=== PATIENT | male | born 1990 | race Caucasian/White ===

== ENCOUNTER 2023-02-16 06:49 | Emergency (ER) | payer OTHER, SELFPAY ==
--- NOTE | ~2023-02-16 | CT_ITS ---
EXAMINATION: CT ABDOMEN AND PELVIS WITHOUT CONTRAST CLINICAL INFORMATION: Right flank pain COMPARISON: None available. TECHNIQUE: Multidetector volumetric imaging was performed from the superior aspect of the liver through the pubic symphysis. Sagittal and coronal reformatted images were obtained on the technologist's workstation. This CT examination was performed using dose optimization techniques as appropriate, variously including the following: *Automated exposure control *Adjustment of mA and/or kV according to patient size (this includes techniques or standardized protocols for targeted exams where dose is matched to indication/reason for exam; i.e. extremities or head) *Use of iterative reconstruction technique DLP: 616 2 mGy-cm FINDINGS: LUNG BASES: Linear opacities in the anterior aspect of the right middle lobe and lingula, could reflect atelectasis or scarring. No pericardial or pleural effusion. LIVER, GALLBLADDER, AND BILIARY TREE: Right lobe measures 20 cm. Attenuation is within normal limits. No focal hepatic lesion or biliary ductal dilatation is present. The gallbladder is unremarkable with no evidence of radiopaque gallstones, gallbladder wall thickening, or obvious pericholecystic inflammatory changes. PANCREAS: Unremarkable. No acute inflammatory changes. SPLEEN: Unremarkable. ADRENAL GLANDS: Unremarkable. KIDNEYS AND URETERS: There is a 2 mm calculus in the proximal right ureter. There is mild hydroureteronephrosis proximal to the calculus. The more distal ureter is nondistended. There is a 2 mm nonobstructing calculus in the midpole right renal calyx. No left renal calculi. No suspicious renal lesions. No left-sided hydroureteronephrosis. BLADDER: Nondistended, limiting evaluation. No obvious calculus is evident. GASTROINTESTINAL TRACT: Stomach is partially distended with intraluminal fluid. There is relative dilatation of the right colon to the level of the mid transverse colon. Distal to this, there is a nondistended segment of the transverse colon. There is a distention of the splenic flexure. The large colon distal to this is not dilated, with small-moderate volume stool. Findings are nonspecific. This could represent asymmetric distribution of large bowel gas. No colonic wall thickening or pericolonic inflammatory changes are seen. No dilated small bowel loops. Normal appendix. No free fluid. No free air. ABDOMINAL WALL: No significant hernia is appreciated. LYMPH NODES: No adenopathy is identified in the abdomen or pelvis. VASCULAR: Unremarkable. PELVIC VISCERA: Unremarkable. OSSEOUS STRUCTURES: No acute osseous abnormality seen. CT/CT abdomen pelvis wo IV con IMPRESSION: 1. There is a 2 mm calculus in the proximal right ureter, with mild hydroureteronephrosis proximal to the calculus. Right renal 2 mm nonobstructing calculus. 2. Asymmetric distention of the large colon, with asymmetric distention of the ascending colon and proximal transverse colon, and splenic flexure. Findings are of uncertain etiology. This could represent asymmetric bowel gas distribution. Clinically correlate and follow-up. Follow-up imaging for further evaluation and exclude large colon pathology, as clinically indicated. 3. Hepatomegaly. No focal liver lesions. 4. Additional findings and details as above. Fleischner guidelines were followed.
[2023-02-16 07:01] VITALS: BP 154/101; PULSE 98; RESP 18; TEMP 37; O2SAT 99; BMI 28.7
[2023-02-16 07:14] VITALS: BP 146/94; PULSE 96; RESP 18; TEMP 36.6; O2SAT 100
[2023-02-16 07:18] LABS: MANUAL DIFF FLAG NO
[2023-02-16 07:19] LABS: Basophils Percent Auto 0.2 % (0-2); Eosinophils Percent Auto 0.2 % (0-4); Hematocrit 45.8 % (42.0-52.0); Hemoglobin 16.3 g/dl (14.0-18.0); Imm Gran Abs Auto 0.05 X10*3/uL (0.00-0.03); Imm Gran Pct Auto 0.4 % (0.0-0.4); Lymphocytes Percent Auto 23.2 % (20-40); Mean Corpuscular HGB Conc 35.6 g/dl (31.0-36.0); Mean Corpuscular Hemoglobin 31.5 pg (27.0-33.0); Mean Corpuscular Volume 88.6 fL (80.0-98.0); Mean Platelet Volume 9.2 fL (9.4-12.4); Monocytes Absolute Auto 0.7 X10*3/uL (0.1-1.2); Monocytes Percent Auto 5.5 % (2-11); Neutrophils Absolute Auto 9.1 x10*3/uL (2.0-8.3); Neutrophils Percent Auto 70.5 % (45-73); Platelet Count 344 X10*3/uL (160-400); Red Blood Count 5.17 X10*6/uL (4.60-5.80); Red Cell Distribution Width 12.8 % (11.0-16.0); White Blood Count 12.9 X10*3/uL (4.8-10.8)
--- NOTE | 2023-02-16 07:23 | ED.GENADULT ---
[facility] - General Adult General Chief complaint: Abdominal Pain Stated complaint: back pain Time Seen by Provider: 02/16/23 07:05 Source: patient and RN notes reviewed Mode of arrival: ambulatory Limitations: no limitations History of Present Illness HPI narrative: This is a 32-year-old male, with a past medical history of back pain, presenting to the emergency department with complaints of right-sided flank pain since 2:00 p.m. yesterday. Patient reports that he was relaxing at home when he suddenly developed right-sided back pain that radiated into his right flank. He endorses 3 episodes of non-bloody vomiting yesterday. He denies any recent falls, trauma, or heavy lifting. He denies any fevers, endorses chills. No chest pain, shortness of breath, nausea, urinary frequency, urgency, hematuria. Denies history of kidney stones he states that he last took ibuprofen 800 mg 1 hour prior to his arrival which provided him without any relief. No urinary or bowel incontinence. No saddle anesthesia. No other complaints or concerns at this time MD complaint: R flank pain Onset (ago): day(s) Relieving factors: none Exacerbating factors: none Associated symptoms: denies other symptoms Treatments prior to arrival: none Related Data Previous Rx's Medication Instructions Recorded acetaminophen 325 mg tablet 650 mg PO Q6H PRN pain #45 tabs 02/16/23 (Tylenol) cyclobenzaprine 10 mg tablet 10 mg PO BID PRN muscle spasm #14 02/16/23 tabs ibuprofen 600 mg tablet 600 mg PO Q6H PRN pain #45 tabs 02/16/23 oxycodone 5 mg capsule 5 mg PO Q6H PRN pain #10 caps 02/16/23 tamsulosin 0.4 mg capsule (Flomax) 0.4 mg PO DAILY #7 caps 02/16/23 Allergies Allergy/AdvReac Type Severity Reaction Status Date / Time No Known Allergies Allergy Mild NKA Unverified 03/17/20 16:32 Review of Systems Review of Systems: Yes all other systems are reviewed and are negative Constitutional: Constitutional: Reports as per [facility] Social History Social History Alcohol intake: current Alcohol intake frequency: holidays/special occasions only Smoked in Last 30 Days: No Use of substances other than those prescribed or required for medical reasons: No Advance Directives: No Advance Directives Information Provided: No Physical Exam ED Vital Signs: Vital Signs - 24 hr 02/16/23 08:24 02/16/23 10:52 02/16/23 12:05 Temperature 98.8 F 98.8 F Pulse Rate 96 91 83 Respiratory Rate 18 16 18 Blood Pressure 129/88 152/102 H 131/85 Pulse Oximetry 97 98 98 Oxygen Delivery Method Room Air Room Air Room Air BMI result Body Mass Index 28.7 Const Other: In moderate distress secondary to pain. General: cooperative and comfortable Orientation/consciousness: patient oriented x3 Limitations: no limitations HENMT Head: Yes normal to inspection, Yes normocephalic and Yes atraumatic Ears: hearing grossly normal bilaterally General nose exam: Normal external nose present Face and sinus: Yes normal facial exam Mouth: Normal oral and palatal mucosa present, oropharynx normal and moist mucous membranes Throat: Yes posterior oropharynx normal Eyes General: appearance normal, both eyes and all related structures Eyelids: Yes eyelids normal Conjunctivae: conjunctivae normal Sclerae: sclerae normal Pupils: Equal, round and reactive pupils present EOM: EOMs intact bilaterally Neck Neck: Yes normal visual inspection, Yes full ROM and Yes no lymphadenopathy Lymphatic: no lymphadenopathy noted Chest Chest palpation & inspection: normal inspection of the chest Resp Effort & Inspection: normal respiratory effort and able to speak in complete sentences Auscultation: clear to auscultation bilaterally, no crackles, no rales, no rhonchi and no wheezes Cardio Rate: regular rate Rhythm: regular rhythm Heart sounds: S1 normal heart sound present and S2 normal heart sound present GI Other: Abdomen is soft, nontender, nondistended, normoactive bowel sounds present in all 4 quadrants. Inspection: Yes normal to inspection Other: Mild CVA tenderness on palpation Back/Spine/Pelvis Other: No C-spine, T-spine, L-spine midline tenderness. Tenderness palpation in the right paraspinous muscles. Patient is ambulatory. Distal sensation circulation intact Cervical Spine: normal cervical lordosis Thoracic/Lumbar Spine: thoracic and lumbar spine normal to inspection Pelvis: no pain with anterior-posterior compression Skin General skin exam: no rashes or lesions noted Trauma: no lacerations or abrasions Wounds: no wounds Neuro General: patient oriented x3 and moves all extremities Cranial nerves: Yes Equal, round and reactive pupils present Extrem General: Yes normal to inspection Right upper extremity: normal to inspection Left upper extremity: normal to inspection Right lower extremity: normal to inspection Left lower extremity: normal to inspection Course Reevaluation(s) Reevaluation #1: Patient's pain has not improved despite getting morphine 4 mg IV. Patient found leaning forward, massaging back. Dilaudid 0.5 mg IV ordered. Time: 08:12 Reevaluation #2: Patient re-evaluated after receiving Dilaudid, appears much more comfortable, sitting upright. Reporting pain significantly improved. CT abdomen and pelvis pending. Time: 08:23 Reevaluation #3: CT abdomen revealing a 2 mm calculus in the proximal right ureter with mild hydroureternephrosis proximal to the calculus. Right renal 2 mm nonobstructing calculus. There is also asymmetric distention of the large colon, discussed case with Dr. Ghotra. Patient has been passing gas, last bowel movement was yesterday. Unlikely significant. Patient is still in pain. Will medicate with Dilaudid 1 mg IV Time: 10:24 Additional Reevaluation(s): 1146 - patient feeling better after receiving IV dilaudid. Patient reports that he still has intermittent pain, feeling as though it is like a muscle spasm. Patient does have tenderness palpation along the right lumbar musculature. Educated patient importance of alternating between ibuprofen and Tylenol. Given Flomax. Also given referral to Urology if he would like to follow-up. Strict return precautions. Patient understands and agrees with plan. Patient stable for discharge. Medications Administered Discontinued Medications Generic Name Dose Route Start Last Admin Trade Name Judy PRN Reason Stop Dose Admin Hydromorphone HCl 0.5 mg 02/16/23 08:06 02/16/23 08:14 Hydromorphone Hcl 0.5 Mg/0.5 Ml Syringe IVPUSH 02/16/23 08:07 0.5 mg ONCE ONE Administration Protocol Hydromorphone HCl 0.25 mg 02/16/23 09:37 02/16/23 09:43 Hydromorphone Hcl 0.5 Mg/0.5 Ml Syringe IVPUSH 02/16/23 09:38 0.25 mg ONCE ONE Administration Protocol Hydromorphone HCl 1 mg 02/16/23 10:23 08/19/23 10:54 Hydromorphone Hcl 1 Mg/Ml Syringe IVPUSH 02/16/23 10:24 1 mg ONCE ONE Administration Protocol Sodium Chloride 1,000 mls @ 999 mls/hr 02/16/23 07:23 02/16/23 09:28 Ns IV 02/16/23 08:23 Infused .Q1H1M ONE Infusion Morphine Sulfate 4 mg 02/16/23 07:21 02/16/23 07:45 Morphine Sulfate 4 Mg/Ml Cartridge IVPUSH 02/16/23 07:22 4 mg ONCE ONE Administration Protocol Medical Decision Making Medical Decision Making MDM Narrative: 32-year-old male presenting to the emergency department for evaluation of right-sided flank pain since yesterday. Patient admitting to 3 episodes of nonbloody vomit taking yesterday. On arrival, patient's blood pressure 154/101, mildly hypertensive likely due to pain. Patient appears uncomfortable. Presentation concerning for nephrolithiasis vs pyelonephritis vs back strain, given level of discomfort and taking ibuprofen 800 mg p.o. just prior to arrival, will medicate with morphine 4 mg IV and IV fluids. Unable to be medicated with ketorolac. On examination, patient does have mild tenderness palpation along the right lumbar musculature as well as right flank. Abdomen is soft, nontender, nondistended. Plan: Labs, UA, pain control, CT abdomen pelvis Differential Diagnosis Differential Diagnoses: The differential diagnosis associated with the presentation includes Nephrolithiasis, pyelonephritis, disc herniation, sciatica Lab Data [facility] Lab Attestation statement: I reviewed the patient's lab results. Mild leukocytosis at 12.9, stable H&H, urine with large blood, consistent with kidney stone finding, no evidence of infection. 02/16/23 07:11 02/16/23 07:11 Labs: Lab Results 02/16/23 02/16/23 02/16/23 Range/Units 07:11 07:11 08:27 WBC 12.9 H (4.8-10.8) X10*3/uL RBC 5.17 (4.60-5.80) X10*6/uL Hgb 16.3 (14.0-18.0) g/dl Hct 45.8 (42.0-52.0) % MCV 88.6 (80.0-98.0) fL MCH 31.5 (27.0-33.0) pg MCHC 35.6 (31.0-36.0) g/dl RDW 12.8 (11.0-16.0) % Plt Count 344 (160-400) X10*3/uL MPV 9.2 L (9.4-12.4) fL Immature Gran % (Auto) 0.4 (0.0-0.4) % Neut % (Auto) 70.5 (45-73) % Lymph % (Auto) 23.2 (20-40) % Terry % (Auto) 5.5 (2-11) % Eos % (Auto) 0.2 (0-4) % Baso % (Auto) 0.2 (0-2) % Lymph # (Auto) 3.0 (1.2-4.9) X10*3/uL Terry # (Auto) 0.7 (0.1-1.2) X10*3/uL Eos # (Auto) 0.0 (0.0-0.4) X10*3/uL Baso # (Auto) 0.0 (0.0-0.2) X10*3/uL Abs Immat Gran (auto) 0.05 H (0.00-0.03) X10*3/uL Absolute Neuts (auto) 9.1 H (2.0-8.3) x10*3/uL Absolute Nucleated RBC 0.000 (0.0-0.012) X10*3/uL Nucleated RBC % (auto) 0.0 (0.0-0.2) /100WBC Sodium 140 (135-145) mmol/L Potassium 3.8 (3.3-5.1) mmol/L Chloride 105 (96-108) mmol/L Carbon Dioxide 24 (22-29) mmol/L Anion Gap 15 (12-20) BUN 8 L (9-16) mg/dL Creatinine 0.94 (0.5-1.4) mg/dL Estim Creat Clear Calc 145.9 Estimated GFR > 60 Random Glucose 114 (60-115) mg/dL Calcium 9.4 (8.4-10.2) mg/dL Total Bilirubin 1.0 (0.0-1.0) mg/dL Direct Bilirubin 0.2 (0.0-0.5) mg/dL AST 20 (5-37) U/L ALT 18 (0-40) U/L Alkaline Phosphatase 70 (39-117) U/L Total Protein 7.1 (6.5-8.0) g/dL Albumin 4.2 (3.5-5.0) g/dL Lipase 17 (8-78) U/L Urine Color Yellow Urine Appearance Clear Urine pH 6.5 (5.0-9.0) Ur Specific [place] 1.015 (1.005-1.025) Urine Protein Trace (Neg-Trace) mg/dL Urine Glucose (UA) Negative (Negative) mg/dL Urine Ketones 15 (Negative) mg/dL Urine Blood Large (3+) H (Negative) Urine Nitrite Negative (Negative) Ur Leukocyte Esterase Negative (Negative) Urine RBC >20 H (0-2) /HPF Urine WBC 0-5 (0-5) /HPF Ur Squamous Epith Cells 0-2 (0-2) /HPF Urine Bacteria None Seen (None Seen) Hyaline Casts 0-2 (0-2) /LPF Radiology Impression Discussion of test interpretation with radiology: I have reviewed the radiologist's reading. Radiologist Impression: EXAMINATION: CT ABDOMEN AND PELVIS WITHOUT CONTRAST? CLINICAL INFORMATION: Right flank pain? COMPARISON: None available. TECHNIQUE: Multidetector volumetric imaging was performed from the superior aspect of the liver through the pubic symphysis. Sagittal and coronal reformatted images were obtained on the technologist's workstation.? This CT examination was performed using dose optimization techniques as appropriate, variously including the following: *Automated exposure control *Adjustment of mA and/or kV according to patient size (this includes techniques or standardized protocols for targeted exams where dose is matched to indication/reason for exam; i.e. extremities or head) *Use of iterative reconstruction technique DLP: 616 2 mGy-cm FINDINGS: LUNG BASES: Linear opacities in the anterior aspect of the right middle lobe and lingula, could reflect atelectasis or scarring. No pericardial or pleural effusion.? LIVER, GALLBLADDER, AND BILIARY TREE: Right lobe measures 20 cm. Attenuation is within normal limits. No focal hepatic lesion or biliary ductal dilatation is present. The gallbladder is unremarkable with no evidence of radiopaque gallstones, gallbladder wall thickening, or obvious pericholecystic inflammatory changes.? PANCREAS: Unremarkable. No acute inflammatory changes.? SPLEEN: Unremarkable.? ADRENAL GLANDS: Unremarkable.? KIDNEYS AND URETERS: There is a 2 mm calculus in the proximal right ureter. There is mild hydroureteronephrosis proximal to the calculus. The more distal ureter is nondistended. There is a 2 mm nonobstructing calculus in the midpole right renal calyx. No left renal calculi. No suspicious renal lesions. No left-sided hydroureteronephrosis.? BLADDER: Nondistended, limiting evaluation. No obvious calculus is evident.? GASTROINTESTINAL TRACT: Stomach is partially distended with intraluminal fluid. There is relative dilatation of the right colon to the level of the mid transverse colon. Distal to this, there is a nondistended segment of the transverse colon. There is a distention of the splenic flexure. The large colon distal to this is not dilated, with small-moderate volume stool. Findings are nonspecific. This could represent asymmetric distribution of large bowel gas. No colonic wall thickening or pericolonic inflammatory changes are seen. No dilated small bowel loops. Normal appendix. No free fluid. No free air.? ABDOMINAL WALL: No significant hernia is appreciated.? LYMPH NODES: No adenopathy is identified in the abdomen or pelvis. VASCULAR: Unremarkable. PELVIC VISCERA: Unremarkable.? OSSEOUS STRUCTURES: No acute osseous abnormality seen.? CT/CT abdomen pelvis wo IV con IMPRESSION: 1. There is a 2 mm calculus in the proximal right ureter, with mild hydroureteronephrosis proximal to the calculus. Right renal 2 mm nonobstructing calculus. ? 2. Asymmetric distention of the large colon, with asymmetric distention of the ascending colon and proximal transverse colon, and splenic flexure. Findings are of uncertain etiology. This could represent asymmetric bowel gas distribution. Clinically correlate and follow-up. Follow-up imaging for further evaluation and exclude large colon pathology, as clinically indicated. ? 3. Hepatomegaly. No focal liver lesions. ? 4. Additional findings and details as above. ? Fleischner guidelines were followed. Dictated By: Joshua Pinto MD Independent Historian Clinical information obtained from an independent historian. History obtained from or confirmed by: Spouse Prescription Management I considered prescription management with: Pain Medication Critical Care Time Critical Care Time Critical Care Time: Yes Total Critical Care Time: 35 Attestation: I have personally provided critical care time exclusive of time spent on separately billable procedures. Time includes review of lab data, radiology results, discussion with consultants, and monitoring for potential decompensation. Intervention performed as documented. Discharge Plan Discharge Clinical Impression: Right nephrolithiasis, Spasm of lumbar paraspinous muscle Patient Disposition: Home, Self-Care Instructions: Kidney Stones (ED) Additional Instructions: Your CT scan revealed a 2 mm kidney stone, you should pass this stone within the course of the next several days. Please treat your symptoms with prescribed medication. Alternate between Tylenol and ibuprofen. You may take oxycodone for severe pain only. Do not drink alcohol or drive while taking this. Flomax will help pass the stone. Use strainer with urination to see if you have passed a stone. It does appear that you also have a muscle spasm, take prescribed muscle relaxant as directed, do not take with oxycodone. If any new or worsening symptoms occur including but not limited to worsening pain, nausea, vomiting, please return for re-evaluation. I am also giving your referral to urologist, you may call the follow-up with them as needed. Many people pass kidney stones on their own and do not need urology follow-up. Prescriptions: New tamsulosin [Flomax] 0.4 mg capsule 0.4 mg PO DAILY Qty: 7 0RF ibuprofen 600 mg tablet 600 mg PO Q6H PRN (Reason: pain) Qty: 45 0RF acetaminophen [Tylenol] 325 mg tablet 650 mg PO Q6H PRN (Reason: pain) Qty: 45 0RF oxycodone 5 mg capsule 5 mg PO Q6H PRN (Reason: pain) Qty: 10 0RF Rx Instructions: Partial Fill upon patient request. cyclobenzaprine 10 mg tablet 10 mg PO BID PRN (Reason: muscle spasm) Qty: 14 0RF Referrals: [facility] [place] [facility] [Provider Group] Interventions: ED Discharge Assessment Last Done: 02/16/23 12:29 Discharge Date/Time: 02/16/23 12:30
[2023-02-16 07:40] LABS: Alanine Aminotransferase 18 U/L (0-40); Albumin Level 4.2 g/dL (3.5-5.0); Alkaline Phosphatase 70 U/L (39-117); Anion Gap 15 (12-20); Aspartate Amino Transferase 20 U/L (5-37); Bilirubin Direct 0.2 mg/dL (0.0-0.5); Blood Urea Nitrogen 8 mg/dL (9-16); Calcium 9.4 mg/dL (8.4-10.2); Carbon Dioxide 24 mmol/L (22-29); Chloride 105 mmol/L (96-108); Creatinine Clr Calc Pharmacy 145.9; Estimated Glomerular Filt Rate > 60; Glucose Random 114 mg/dL (60-115); Lipase 17 U/L (8-78); Potassium 3.8 mmol/L (3.3-5.1); Sodium 140 mmol/L (135-145); Total Protein 7.1 g/dL (6.5-8.0)
[2023-02-16] MEDS: Morphine Sulfate 4 MG/ML CARTRIDGE IVPUSH (07:45)
[2023-02-16] MEDS: 0.9 % Sodium Chloride 1,000 ML 999 ML IV (07:49)
[2023-02-16] MEDS: HYDROmorphone HCl 0.5 MG/0.5 ML SYRINGE IVPUSH (08:14)
--- NOTE | 2023-02-16 08:18 | PC.NURSE ---
pt came home for increased back pain radiating to his abdomen since yesterday afternoon. pt medicated per AUG with no effect. pt still in visible discomfort with 9/10 pain. also c/o chills and hot flashes that come and go. aware, dilaudid administered. will reassess. UA collected.
[2023-02-16 08:24] VITALS: BP 129/88; PULSE 96; RESP 18; TEMP 37.1; O2SAT 97
[2023-02-16 08:34] LABS: Appearance Urine Clear; Color Urine Yellow; Glucose Urine UA Negative (Negative); Leukocyte Esterase Urine Negative (Negative); Nitrite Urine Negative (Negative); PH 6.5 (5.0-9.0); Specific Gravity - Urine 1.015 (1.005-1.025); UMIC TRIGGER UACC YES; Urine Blood Large (3+) (Negative); Urine Ketones 15 mg/dL (Negative); Urine Protein Trace mg/dL (Neg-Trace)
[2023-02-16 08:38] LABS: Bacteria Urine None Seen (None Seen); Hyaline Casts Urine 0-2 /LPF (0-2); RBC Urine >20 /HPF (0-2); Squamous Epithelial Cell Urine 0-2 /HPF (0-2); WBC Urine 0-5 /HPF (0-5)
--- NOTE | 2023-02-16 08:43 | PC.NURSE ---
pain reassessed. pt reports pain has not changed, still fluctuating between 10 and 10. pt still appears in discomfort.
[2023-02-16] MEDS: HYDROmorphone HCl 0.5 MG/0.5 ML SYRINGE 0.25 MG IVPUSH (09:43)
[2023-02-16 10:52] VITALS: BP 152/102; PULSE 91; RESP 16; O2SAT 98
[2023-02-16] MEDS: HYDROmorphone HCl 1 MG/ML SYRINGE IVPUSH (10:54)
[2023-02-16 12:05] VITALS: BP 131/85; PULSE 83; RESP 18; TEMP 37.1; O2SAT 98
== END 2023-02-16 12:30 | disposition home or self-care (01) ==
PROVIDERS: Emergency Provider Emergency Medicine
DX: N13.2 Hydronephrosis with renal and ureteral calculous obstruction (principal); M62.830 Muscle spasm of back
CPT/HCPCS: 36415; 74176; 80048; 80076; 81001; 83690; 85025; 96361; 96374; 96375; 96376; 99284; J1170; J2270

== ENCOUNTER 2024-01-16 03:11 | Emergency (ER) | payer OTHER, SELFPAY ==
[2024-01-16 03:13] VITALS: BP 150/93; PULSE 92; RESP 16; TEMP 36.9; O2SAT 100; BMI 28.7
[2024-01-16 03:30] LABS: Basophils Absolute Auto 0.1 X10*3/uL (0.0-0.2); Basophils Percent Auto 0.5 % (0-2); Eosinophils Absolute Auto 0.2 X10*3/uL (0.0-0.4); Hematocrit 44.8 % (42.0-52.0); Hemoglobin 15.7 g/dl (14.0-18.0); Imm Gran Abs Auto 0.08 X10*3/uL (0.00-0.03); Imm Gran Pct Auto 0.5 % (0.0-0.4); Lymphocytes Percent Auto 48.7 % (20-40); MANUAL DIFF FLAG SCAN; Mean Corpuscular Hemoglobin 31.8 pg (27.0-33.0); Mean Corpuscular Volume 90.9 fL (80.0-98.0); Mean Platelet Volume 9.2 fL (9.4-12.4); Monocytes Absolute Auto 1.1 X10*3/uL (0.1-1.2); Monocytes Percent Auto 7.4 % (2-11); Neutrophils Absolute Auto 6.4 x10*3/uL (2.0-8.3); Neutrophils Percent Auto 41.9 % (45-73); Platelet Count 381 X10*3/uL (160-400); Red Blood Count 4.93 X10*6/uL (4.60-5.80); Red Cell Distribution Width 13.2 % (11.0-16.0); SCAN SMEAR FLAG 1; White Blood Count 15.4 X10*3/uL (4.8-10.8)
[2024-01-16 03:31] LABS: Appearance Urine Clear; Color Urine Dark Yellow; Glucose Urine UA Negative (Negative); Leukocyte Esterase Urine Negative (Negative); Nitrite Urine Negative (Negative); PH 5.5 (5.0-9.0); Specific Gravity - Urine >= 1.030 (1.005-1.025); UMIC TRIGGER UACC YES; Urine Blood Large (3+) (Negative); Urine Ketones Trace mg/dL (Negative); Urine Protein 30 (1+) mg/dL (Neg-Trace)
[2024-01-16 03:31] LABS: Lymphocytes Absolute Auto 7.5 X10*3/uL (1.2-4.9)
[2024-01-16 03:34] LABS: Bacteria Urine None Seen (None Seen); Hyaline Casts Urine 0-2 /LPF (0-2); RBC Urine >20 /HPF (0-2); Squamous Epithelial Cell Urine 0-2 /HPF (0-2); WBC Urine 0-5 /HPF (0-5)
[2024-01-16 03:42] LABS: Anion Gap 19 (12-20); Blood Urea Nitrogen 16 mg/dL (9-16); Calcium 9.7 mg/dL (8.4-10.2); Carbon Dioxide 22 mmol/L (22-29); Chloride 105 mmol/L (96-108); Creatinine Clr Calc Pharmacy 133.4; Estimated Glomerular Filt Rate > 60; Glucose Random 132 mg/dL (60-115); Potassium 3.4 mmol/L (3.3-5.1); Sodium 143 mmol/L (135-145)
[2024-01-16 04:36] VITALS: BP 128/88; PULSE 88; RESP 17; TEMP 36.6; O2SAT 100
[2024-01-16 04:49] LABS: SLIDE REVIEW VERIFIED
--- NOTE | 2024-01-16 05:08 | PC.NURSE ---
pt from home, a&ox4, respirations even and unlabored. pt reporting onset of right flank pain radiating down left leg starting today. pt reports hx of kidney stones but reports no hx of surgery. pt reports nausea but denies vomiting and diarrhea. 20G placed in right ac. vss.
--- NOTE | 2024-01-16 06:48 | ED_ITS ---
HPI - General Adult General Chief complaint: General Medical Stated complaint: Patient states kidney stone Time Seen by Provider: 01/16/24 06:45 Source: patient Mode of arrival: ambulatory Limitations: no limitations History of Present Illness ED Provider: Evelina Dalton PA-C HPI narrative: Patient is a 33 year old assigned male at with a medical history of kidney stones presenting to the emergency department today with right sided flank pain. Patient states that he had sudden onset right sided flank pain and came to the ER right away. Patient states that since he has been here he has urinated blood but now it is clear and his pain has resolved. Patient denies any dizziness, lightheadedness, abdominal pain, nausea, vomiting, fever, chills, blurry vision, double vision, loss of vision, chest pain, difficulty breathing, shortness of breath, back pain, night sweats, pain with urination, increased urinary frequency, increased urinary urgency, blood in his urine or stool, syncope or a near syncopal episode, recent trauma or falls, bowel incontinence, bladder incontinence, or any other complaints at this time. Relieving factors: none Exacerbating factors: none Associated symptoms: denies other symptoms Treatments prior to arrival: none Related Data Previous Rx's ?Medication ?Instructions ?Recorded acetaminophen 325 mg tablet 650 mg (2 x 325 mg) PO Q6H PRN 02/16/23 (Tylenol) pain #45 tabs cyclobenzaprine 10 mg tablet 10 mg PO BID PRN muscle spasm #14 02/16/23 tabs ibuprofen 600 mg tablet 600 mg PO Q6H PRN pain #45 tabs 02/16/23 oxycodone 5 mg capsule 5 mg PO Q6H PRN pain #10 caps 02/16/23 tamsulosin 0.4 mg capsule (Flomax) 0.4 mg PO DAILY #7 caps 02/16/23 tamsulosin 0.4 mg capsule 0.4 mg PO DAILY #7 caps 01/16/24 Allergies Allergy/AdvReac Type Severity Reaction Status Date / Time No Known Allergies Allergy Mild NKA Unverified 01/16/24 03:16 Review of Systems 2 Constitutional: Constitutional: Reports no additional constitutional complaints, Denies chills, Denies fever(s) and Denies night sweats Eyes: Eyes: Reports no additional eye complaints, Denies blurry vision, Denies change in vision, Denies diplopia, Denies eye discharge, Denies loss of vision and Denies eye pain ENT: Denies dizziness Cardiovascular: Cardiovascular: Reports no additional cardiovascular complaints, Denies chest pain, Denies lightheadedness, Denies Loss of Consciousness and Denies dyspnea Respiratory: Respiratory: Reports no additional respiratory complaints and Denies dyspnea Gastrointestinal: Gastrointestinal: Reports no additional gastrointestinal complaints, Denies abdominal pain, Denies melena, Denies hematochezia, Denies change in bowel habits and Denies change in stool character Genitourinary: Genitourinary: Reports no additional male genitourinary complaints, Denies hematuria, Denies oliguria, Denies difficulty urinating, Denies dysuria, Reports flank pain, Denies urinary frequency, Denies urinary hesitancy, Denies urinary incontinence and Denies urinary urgency Musculoskeletal: Musculoskeletal: Reports no additional musculoskeletal complaints, Denies numbness and Denies tingling Neurologic: Denies dizziness, Denies loss of vision, Denies numbness and Denies tingling Psychiatric: Psychiatric: Reports no additional psychiatric complaints Endocrine: Endocrine: Reports no additional endocrine complaints Hematologic/Lymphatic: Hematologic/Lymphatic: Reports no additional hematologic/lymphatic complaints Allergic/Immunologic: Allergic/Immunologic: Reports no additional allergic/immunologic complaints PMFSH Past Medical History Attestation statement: The following information was validated with the patient. Source: old records reviewed and nursing notes reviewed Social History Social History Alcohol intake: current Alcohol intake frequency: holidays/special occasions only Smoked in Last 30 Days: No Use of substances other than those prescribed or required for medical reasons: No Advance Directives: No Advance Directives Information Provided: Yes Physical Exam ED Vital Signs: Vital Signs - 24 hr 01/16/24 03:13 01/16/24 04:36 01/16/24 07:14 Temperature 98.4 F 97.8 F 97.8 F Pulse Rate 92 88 88 Respiratory Rate 16 17 18 Blood Pressure 150/93 H 128/88 128/88 Pulse Oximetry 100 100 100 Oxygen Delivery Method Room Air Room Air Room Air BMI result Body Mass Index 28.7 Const General: cooperative, no acute distress, alert and awake Nutritional Appearance: well nourished Orientation/consciousness: patient oriented x3 Limitations: no limitations HENMT Head: Yes normal to inspection and Yes atraumatic Ears: hearing grossly normal bilaterally and external ears normal General nose exam: Normal external nose present, no nasal discharge noted and no epistaxis Face and sinus: Yes normal facial exam, No abrasion and No laceration Mouth: Normal oral and palatal mucosa present, no drooling and no muffled voice Eyes General: appearance normal, both eyes and all related structures Periorbital: periorbital findings normal Eyelids: Yes eyelids normal Conjunctivae: conjunctivae normal Pupils: Equal, round and reactive pupils present EOM: EOMs intact bilaterally Neck Neck: Yes normal visual inspection, Yes full ROM and Yes no lymphadenopathy Chest Chest palpation & inspection: normal inspection of the chest Resp Effort & Inspection: normal respiratory effort and able to speak in complete sentences GI Inspection: Yes normal to inspection Other: right sided flank pain Neuro General: patient oriented x3 and moves all extremities Cranial nerves: Yes Equal, round and reactive pupils present Cognition (Neuro): normal cognition Extrem General: Yes normal to inspection, Yes full ROM and Yes capillary refill normal Psych Appearance: grossly normal Mental Status: mental status grossly normal Affect: normal affect Attitude: cooperative Thought process: Normal thought process present Thought content: Normal thought content present Insight: Good insight present (Psych) Medications Administered Discontinued Medications Generic Name Dose Route Start Last Admin Trade Name Freq PRN Reason Stop Dose Admin Sodium Chloride 1,000 mls @ 999 mls/hr 01/16/24 07:00 01/16/24 07:08 Ns IV 01/16/24 08:00 Not Given .Q1H1M [facility] Ketorolac Tromethamine 15 mg 01/16/24 06:57 01/16/24 07:07 Ketorolac Tromethamine 15 Mg/Ml Vial IVPUSH 01/16/24 06:58 Not Given ONCE ONE Medical Decision Making Medical Decision Making MDM Narrative: Patient is a 33 year old assigned male at with a history of kidney stones presenting to the emergency department today with right sided flank pain. Patient's physical exam was unremarkable. Patient's blood work showed an elevated WBC count of 15.4 but was otherwise unremarkable. Patient's urine showed >20 RBC but was otherwise unremarkable. I explained my physical exam findings as well as all test results to the patient. I answered all questions asked by the patient. I stressed the importance of the patient taking his medication as directed (either prescribed or as the over the counter packaging recommends). I stressed the importance of the patient following up with his primary care provider and a urologist. I stressed the importance of the patient returning to the emergency department immediately if his symptoms were to worsen or if he were to develop any dizziness, shortness of breath, difficulty breathing, chest pain, blurry vision, loss of vision, nausea, vomiting, abdominal pain, fever, chills, back pain, or any other complaints. Patient verbalized agreement and understanding with this treatment plan and discharge. Differential Diagnosis Differential Diagnoses: The differential diagnosis associated with the presentation includes Flank pain Kidney stone Passed stone Admission/Observation Consideration of admission/observation: Escalation of care including admission/observation considered Patient would have been admitted to the hospital had his work up had any findings where hospital admission was appropriate and his clinical presentation warranted hospital admission. Lab Data [facility] Lab Attestation statement: I reviewed the patient's lab results. My interpretation of these results are in the [facility] Rationale portion of this note. 01/16/24 03:24 01/16/24 03:24 Labs: Lab Results 01/16/24 01/16/24 Range/Units 03:24 03:25 WBC 15.4 H (4.8-10.8) X10*3/uL RBC 4.93 (4.60-5.80) X10*6/uL Hgb 15.7 (14.0-18.0) g/dl Hct 44.8 (42.0-52.0) % MCV 90.9 (80.0-98.0) fL MCH 31.8 (27.0-33.0) pg MCHC 35.0 (31.0-36.0) g/dl RDW 13.2 (11.0-16.0) % Plt Count 381 (160-400) X10*3/uL MPV 9.2 L (9.4-12.4) fL Immature Gran % (Auto) 0.5 H (0.0-0.4) % Neut % (Auto) 41.9 L (45-73) % Lymph % (Auto) 48.7 H (20-40) % [place] % (Auto) 7.4 (2-11) % Eos % (Auto) 1.0 (0-4) % Baso % (Auto) 0.5 (0-2) % Lymph # (Auto) 7.5 H (1.2-4.9) X10*3/uL [place] # (Auto) 1.1 (0.1-1.2) X10*3/uL Eos # (Auto) 0.2 (0.0-0.4) X10*3/uL Baso # (Auto) 0.1 (0.0-0.2) X10*3/uL Abs Immat Gran (auto) 0.08 H (0.00-0.03) X10*3/uL Absolute Neuts (auto) 6.4 (2.0-8.3) x10*3/uL Absolute Nucleated RBC 0.000 (0.0-0.012) X10*3/uL Nucleated RBC % (auto) 0.0 (0.0-0.2) /100WBC Smear Tech's Comments VERIFIED Smear Path Review SEE NOTE Sodium 143 (135-145) mmol/L Potassium 3.4 (3.3-5.1) mmol/L Chloride 105 (96-108) mmol/L Carbon Dioxide 22 (22-29) mmol/L Anion Gap 19 (12-20) BUN 16 (9-16) mg/dL Creatinine 1.02 (0.5-1.4) mg/dL Estim Creat Clear Calc 133.4 Estimated GFR > 60 Random Glucose 132 H (60-115) mg/dL Calcium 9.7 (8.4-10.2) mg/dL Urine Color Dark Yellow Urine Appearance Clear Urine pH 5.5 (5.0-9.0) Ur Specific [place] >= 1.030 H (1.005-1.025) Urine Protein 30 (1+) H (Neg-Trace) mg/dL Urine Glucose (UA) Negative (Negative) mg/dL Urine Ketones Trace (Negative) mg/dL Urine Blood Large (3+) H (Negative) Urine Nitrite Negative (Negative) Ur Leukocyte Esterase Negative (Negative) Urine RBC >20 H (0-2) /HPF Urine WBC 0-5 (0-5) /HPF Ur Squamous Epith Cells 0-2 (0-2) /HPF Urine Bacteria None Seen (None Seen) Hyaline Casts 0-2 (0-2) /LPF Tests considered The following testing was considered but not selected: I considered obtaining a CT scan of the abdomen/pelvis however, the patient requested to be discharged and did not want to wait for it. Discharge Plan Discharge Clinical Impression: Flank pain Patient Disposition: Home, Self-Care Instructions: Flank Pain (ED) Additional Instructions: Follow up with your primary care provider and a urologist. Return to the emergency department immediately if your symptoms worsen or if you develop any dizziness, shortness of breath, difficulty breathing, chest pain, blurry vision, loss of vision, nausea, vomiting, abdominal pain, fever, chills, back pain, or any other complaints. Prescriptions: New tamsulosin 0.4 mg capsule 0.4 mg PO DAILY Qty: 7 0RF No Action tamsulosin [Flomax] 0.4 mg capsule 0.4 mg PO DAILY Qty: 7 0RF ibuprofen 600 mg tablet 600 mg PO Q6H PRN (Reason: pain) Qty: 45 0RF acetaminophen [Tylenol] 325 mg tablet 650 mg PO Q6H PRN (Reason: pain) Qty: 45 0RF oxycodone 5 mg capsule 5 mg PO Q6H PRN (Reason: pain) Qty: 10 0RF Rx Instructions: Partial Fill upon patient request. cyclobenzaprine 10 mg tablet 10 mg PO BID PRN (Reason: muscle spasm) Qty: 14 0RF Referrals: [facility] [place] Family Medicine [Provider Group] (Call to establish and follow up with a primary care provider. If you already have a primary care provider, please follow up with them.) [facility] [place] Primary CareEmily [Provider Group] [facility] [place] Primary CareZain [Provider Group] [facility] [place] Urology Services [Provider Group] (Call to establish and follow up with a urologist.) Interventions: ED Discharge Assessment Last Done: 01/16/24 07:14 Discharge Date/Time: 01/16/24 07:14 Print Language: Yoruba
--- NOTE | 2024-01-16 07:03 | PC.NURSE ---
Assumed care of patient, into room to medicate patient , patient upset stating he does not want any pain medication or fluids because he asked for it three hours ago when he asked for it. States wants IV removed as he wants to go home. Provider aware
[2024-01-16 07:14] VITALS: BP 128/88; PULSE 88; RESP 18; TEMP 36.6; O2SAT 100
== END 2024-01-16 07:14 | disposition home or self-care (01) ==
PROVIDERS: Emergency Provider Emergency Medicine Emergency Medical Services
DX: R10.9 Unspecified abdominal pain (principal); R31.9 Hematuria, unspecified
CPT/HCPCS: 36415; 80048; 81001; 85025; 99283; 99284

== ENCOUNTER → 2025-04-07 09:34 | Outpatient (BNVA) | payer OTHER, SELFPAY | PROVIDERS: Visit Provider Internal Medicine | DX: S63.502A Unspecified sprain of left wrist, initial encounter (principal); X50.0XXA Overexertion from strenuous movement or load, initial encounter | CPT/HCPCS: 73110; 99202 ==

== ENCOUNTER 2025-04-20 13:30 | Outpatient (RCR) | payer OTHER, SELFPAY ==
--- NOTE | 2025-04-09 14:47 | MHC.OT.EP ---
[facility] Office [address] [phone] F: [phone] F: [phone] Occupational Therapy Plan of Care Patient Name: Smith Oden Date of Evaluation: 04/09/25 Diagnosis: L WRIST SPRAIN Pain Location: L VOLAR WRIST OCCASIONALLY RADIATING PROXIMALLY TO FOREARM PAINFREE AT REST, 1/10 WITH USE Pain Score: 0-1/10 Pain Scale Used: Numeric (0 - 10) Aggravating Factors: PUSHING OFF ITEMS, TWISTING WRIST Alleviating Factors: ORTHOSIS USE Assessment: MR ODEN IS TWELVE DAYS S/P L WRIST INJURY WHILE 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 HEARD A POP IN HIS L WRIST WITH C/O OCCASIONAL MILD PAIN. SEEN AT WORK CONNECTIONS 04/07/25 WHERE AN ORTHOSIS WAS PROVIDED, AND PLACED ON LIGHT DUTY. HE CURRENTLY REPORTS SOME MILD VOLAR WRIST PAIN WHEN WEIGHT BEARING OR TWISTING L WRIST. A 5% LIMITATION IS REPORTED PER THE QUICK DASH ASSESSMENT. A BRIEF COURSE OF OT IS WARRANTED FOR JT PROTECTION STRATEGIES, STRENGTHENING, AND Pt EDUCATION. Frequency and Duration: The patient will be seen 1X/WEEK FOR 3 WEEKS Short Term Goals: IND HEP AND PROGRESSION OF HEP TOLERATE LIFTING >30 POUNDS WITH <2/10 PAIN WITH PROPER BODY MECHANICS IND ORTHOSIS USE/ SELF TAPING STRATEGIES Retirement Goals: SEE ABOVE Treatment Plan: Therapeutic Exercise Therapeutic Activity Home Exercise Program Splinting Neuro Re-ed Patient Education Edema Control ADL Training Ultrasound NMES Iontophoresis Paraffin Fluidotherapy MHP Cold Packs Joint Mobilization Soft Tissue Mobilization Kinesiotaping Other (see comments) Electronically Signed By: CHAVA GILMAN OTR/L Please Sign and return to therapist. Thank you once again for your referral.
--- NOTE | 2025-04-20 13:59 | MHC.OT.DC ---
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 PT IS IN AGREEMENT W/ D/CHARGE TODAY Electronically Signed By: ALEX GUERRA OTR/L Reviewed/agree with student documentation: N/A Therapist: Please Sign and return to therapist, thank you for your referral.
== END 2025-04-20 13:59 | disposition home or self-care (01) ==
LOC: HO.OT 13:30
PROVIDERS: Visit Provider Internal Medicine
DX: S63.502D Unspecified sprain of left wrist, subsequent encounter (principal)
CPT/HCPCS: 97110; 97140; 97165

== ENCOUNTER → 2025-04-21 11:05 | Outpatient (BNVA) | payer OTHER, SELFPAY | PROVIDERS: Visit Provider Internal Medicine | DX: S63.502D Unspecified sprain of left wrist, subsequent encounter (principal); X50.0XXD Overexertion from strenuous movement or load, subsequent encounter; Z02.79 Encounter for issue of other medical certificate | CPT/HCPCS: 99213 ==